=== PATIENT | female | born 1965 | race Caucasian/White ===

== ENCOUNTER 2017-02-21 12:38 | Emergency (ER) | payer OTHER ==
[~2017-02-21] VITALS: Ht 167.6 cm; Wt 52.1 kg
[2017-02-21] MEDS ORDERED: HYDROmorphone 1 MG/ML, 1ML IM PRN (13:30)
[2017-02-21] MEDS ORDERED: HYDROmorphone 1 MG/ML, 1ML ONE (13:59)
[2017-02-21 14:00] LABS: ASPARTATE AMINO TRANSFERASE 37 U/L (15-37); BLOOD UREA NITROGEN 12 mg/dL (7-18)
[2017-02-21] MEDS ORDERED: VORT5TAB PO (14:07)
[2017-02-21] MEDS ORDERED: DULO30CA2 PO (14:07)
[2017-02-21] MEDS ORDERED: LEVO1CAP PO (14:07)
[2017-02-21] MEDS ORDERED: BENA5TAB2 PO (14:07)
[2017-02-21] MEDS ORDERED: TRAZ50TA18 PO (14:07)
[2017-02-21] MEDS ORDERED: ALPR1TAB2 PO (14:07)
[2017-02-21] MEDS ORDERED: DESV100T PO (14:07)
[2017-02-21 14:46] VITALS: BP 127/106
== END 2017-02-21 15:39 | disposition home or self-care (01) ==
LOC: ED 14:55
DX: N23 Unspecified renal colic (principal); K59.00 Constipation, unspecified
CPT/HCPCS: 36415; 74176; 80053; 81003; 83605; 85025; 96372; 99285; J1170